=== PATIENT | female | born 1970 | race Caucasian/White ===

== ENCOUNTER 2016-10-22 16:23 | Emergency (ER) | payer MEDICAID ==
[2016-10-22 19:37] VITALS: BP 131/73
== END 2016-10-22 19:37 | disposition home or self-care (01) ==
LOC: ED 16:23
DX: R51 Headache (principal)
CPT/HCPCS: J1885

== ENCOUNTER 2018-03-30 23:39 | Emergency (ER) | payer MEDICAID ==
[2018-03-31 01:50] VITALS: BP 132/88
== END 2018-03-31 01:50 | disposition home or self-care (01) ==
LOC: ED 23:39
DX: J32.9 Chronic sinusitis, unspecified (principal); Z90.89 Acquired absence of other organs; Z90.49 Acquired absence of other specified parts of digestive tract
CPT/HCPCS: J1885

== ENCOUNTER 2018-08-08 16:02 | Emergency (ER) | payer MEDICAID ==
[~2018-08-08] VITALS: Ht 162.6 cm; Wt 80.7 kg
[2018-08-08 16:23] VITALS: Ht 162.6 cm; Wt 80.7 kg
[2018-08-08 17:06] LABS: BASOPHIL % 0.4 % (0-2); PLATELET COUNT 242 x10^3mcL (130-400)
[2018-08-08 17:07] LABS: RED CELL DISTRIBUTION WIDTH 15.9 % (11.5-14.5)
[2018-08-08 19:42] VITALS: BP 138/94
== END 2018-08-08 19:42 | disposition home or self-care (01) ==
LOC: ED 16:02
DX: N93.8 Other specified abnormal uterine and vaginal bleeding (principal); Z90.89 Acquired absence of other organs; Z90.49 Acquired absence of other specified parts of digestive tract
CPT/HCPCS: 36415

== ENCOUNTER 2019-04-04 18:14 | Emergency (ER) | payer SELFPAY ==
[~2019-04-04] VITALS: Ht 154.9 cm; Wt 78.9 kg
[2019-04-04 18:57] VITALS: Ht 154.9 cm; Wt 78.9 kg
[2019-04-04 21:34] LABS: POTASSIUM SERUM 3.8 mmol/L (3.5-5.1); SODIUM SERUM 140 mmol/L (136-145)
[2019-04-04 21:35] LABS: CALCIUM 9.4 mg/dL (8.5-10.1); CARBON DIOXIDE 27.7 mmol/L (21-32); CHLORIDE SERUM 105 mmol/L (98-107); CREATININE SERUM 0.9 mg/dL (0.6-1.0); GFR1 > 60 mL/min; GLUCOSE SERUM 77 mg/dL (74-106)
[2019-04-04 22:33] VITALS: BP 125/88
== END 2019-04-04 22:33 | disposition home or self-care (01) ==
LOC: ED 18:14
PROVIDERS: Emergency Medicine
DX: M62.838 Other muscle spasm (principal); Z98.890 Other specified postprocedural states; Z90.89 Acquired absence of other organs
CPT/HCPCS: 36415; J1885